=== PATIENT | male | born 1995 | race Caucasian/White ===

== ENCOUNTER → 2016-06-13 | Outpatient (CLI) | payer BC ==
[~2016-06-13] VITALS: Ht 172.7 cm; Wt 64.1 kg
[2016-06-13 15:11] VITALS: BP 112/72; PULSE 83; Ht 172.7 cm; Wt 64.1 kg
== END | disposition home or self-care (01) ==
LOC: EDSEX 14:15 → C.NEUR 14:15
PROVIDERS: ATTEND Physician Assistant Medical
DX: R53.83 Other fatigue (principal); R06.83 Snoring; F40.10 Social phobia, unspecified